=== PATIENT | male | born 1980 | race Caucasian/White ===

== ENCOUNTER 2016-11-25 10:13 | Emergency (ER) | payer OTHER ==
[~2016-11-25] VITALS: Ht 180.3 cm; Wt 108.0 kg
[2016-11-25] MEDS ORDERED: REMERON15 MG PO (10:47)
[2016-11-25] MEDS ORDERED: PROZAC20 MG PO (10:48)
[2016-11-25] MEDS ORDERED: TRAZODONE HCL50 MG (10:48)
[2016-11-25 11:38] LABS: ABSOLUTE NEUTROPHILS 5.8 thou/uL (1.4-8.2); EOSINOPHILS 3.7 % (0.0-3.0); HEMATOCRIT 45.4 % (42.0-52.0); HEMOGLOBIN 15.8 gm/dL (14.0-18.0); LYMPHOCYTES 30.6 % (24.0-44.0); MANUAL DIFF NO; MCH 30.2 pg (26.0-34.0); MCHC 34.9 g/dL (28.0-37.0); MCV 86.6 fL (80.0-100.0); MONOCYTES 11.8 % (1.0-8.0); PLATELET COUNT 279 thou/uL (150-400); POLYS 52.9 % (36.0-66.0); RBC 5.25 mil/uL (4.50-6.00); RDW 12.7 % (10.5-14.5); WBC 11.1 thou/uL (4.0-11.0)
[2016-11-25 11:42] LABS: CALCIUM 8.9 mg/dL (8.5-10.1); CREATININE 0.8 mg/dL (0.7-1.3); POTASSIUM 4.2 mmol/L (3.5-5.1)
[2016-11-25 11:48] LABS: ALBUMIN 3.9 g/dL (3.4-5.0); DIRECT BILIRUBIN 0.1 mg/dL (<0.1-0.3); TOTAL BILIRUBIN 0.7 mg/dL (<0.1-1.0); TOTAL PROTEIN 6.8 g/dL (6.4-8.2)
[2016-11-25 11:52] LABS: APTT 29.2 Seconds (24.5-32.8); PROTIME 10.4 Seconds (9.3-11.4)
[2016-11-25 12:26] VITALS: BP 124/72
== END 2016-11-25 12:36 | disposition home or self-care (01) ==
LOC: ER 10:13
PROVIDERS: Emergency Medicine
DX: K92.2 Gastrointestinal hemorrhage, unspecified (principal); F41.9 Anxiety disorder, unspecified